=== PATIENT | male | born 1940 | race Caucasian/White ===

== ENCOUNTER 2018-01-22 10:58 | Day surgery (SDC) | payer MEDICARE, OTHER ==
[2018-01-22] VITALS (8 sets, daily range): BP systolic 120–141; BP diastolic 70–99; PULSE 44–101; TEMP 97.2
[~2018-01-22] VITALS: Ht 185.4 cm; Wt 83.6 kg
[2018-01-22] MEDS ORDERED: LIPITOR20 MG PO (11:20)
[2018-01-22] MEDS ORDERED: ZESTRIL 10MG10 MG PO (11:21)
[2018-01-22] MEDS ORDERED: 00186-0372-20 IH (11:21)
[2018-01-22] MEDS ORDERED: NORVASC 5MG5 MG/TAB PO (11:21)
[2018-01-22] MEDS ORDERED: FLONASE SENSIM9.9 ML NS (11:22)
[2018-01-22] MEDS ORDERED: CARDIZEM120 MG PO (11:23)
[2018-01-22] MEDS ORDERED: ELIQUIS 2.5 PO (11:23)
[2018-01-22] MEDS ORDERED: ASPIRIN 81M81 MG/TA2 PO (11:23)
[2018-01-22] MEDS ORDERED: GLUCOSAMINE 1000 PO (11:24)
[2018-01-22 11:40] LABS: HEMOGLOBIN 13.8 g/dl (13.5-18.0); MEAN CELL VOLUME 92 fl (80.0-100.0); MEAN CORPUSCULAR HEMOGLOBIN 30 pg (27.0-31.0); MEAN CORPUSCULAR HGB CONC 32 g/dl (33.0-37.0); MEAN PLATELET VOLUME 10.4 fl (7.4-10.4); PLATELET COUNT 158 K/mm3 (130-400); RED BLOOD COUNT 4.68 M/mm3 (4.20-5.60); REDCELL DISTRIBUTION WIDTH-CV 13.2 % (11.5-14.5)
[2018-01-22 11:44] LABS: INR 1.1 (0.8-3.0); PROTHROMBIN TIME 12.5 SECONDS (9.7-12.8)
[2018-01-22 11:56] LABS: CALCIUM 8.8 mg/dL (8.4-10.2); CREATININE, serum 1.03 mg/dL (0.66-1.25); POTASSIUM 4.3 mmol/L (3.4-5.0)
== END 2018-01-22 17:57 | disposition home or self-care (01) ==
LOC: COL.CAR 10:58
PROVIDERS: Internal Medicine Cardiovascular Disease
DX: I25.10 Atherosclerotic heart disease of native coronary artery without angina pectoris (principal); I10 Essential (primary) hypertension; E78.5 Hyperlipidemia, unspecified; J44.9 Chronic obstructive pulmonary disease, unspecified; H54.42A3 Blindness left eye category 3, normal vision right eye; I48.92 Unspecified atrial flutter; Z86.73 Personal history of transient ischemic attack (TIA), and cerebral infarction without residual deficits; Z79.82 Long term (current) use of aspirin; Z79.01 Long term (current) use of anticoagulants; Z87.891 Personal history of nicotine dependence
CPT/HCPCS: J1644; J2250; J3010; Q9967

== ENCOUNTER 2018-11-26 11:23 | Day surgery (SDC) | payer MEDICARE, OTHER ==
[~2018-11-26] VITALS: Ht 185.6 cm; Wt 86.0 kg
[~2018-11-26 11:23] MED LIST: 00186-0372-20 IH; ASPIRIN 81M81 MG/TA2 PO; CARDIZEM120 MG PO; ELIQUIS 2.5 PO; FLONASE SENSIM9.9 ML NS; GLUCOSAMINE 1000 PO; LIPITOR20 MG PO; NORVASC 5MG5 MG/TAB PO; ZESTRIL 10MG10 MG PO
[2018-11-26 12:09] LABS: INR 1.5 (0.8-3.0); PROTHROMBIN TIME 17.2 SECONDS (9.7-12.8)
[2018-11-26 12:10] VITALS: BP 137/93; PULSE 112; TEMP 97.7
[2018-11-26 12:29] LABS: POTASSIUM 4.5 mmol/L (3.4-5.0)
[2018-11-26] MEDS ORDERED: METOPROLOL TART75 MG PO (12:38)
[2018-11-26] MEDS ORDERED: PRINIVIL40 MG PO (12:39)
[2018-11-26] MEDS ORDERED: ELIQUIS 5MG PO (12:39)
[2018-11-26] MEDS ORDERED: ALDACTONE 25MG25 M1 PO (12:40)
[2018-11-26] MEDS ORDERED: LASIX 20MG TABL20 MG PO (12:40)
[2018-11-26] MEDS ORDERED: LIPITOR 40MG TA40 MG PO (12:41)
[2018-11-26 13:04] LABS: THYROID STIMULATING HORMONE 5.8 uIU/mL (0.465-4.680)
[2018-11-26] MEDS ORDERED: LOPRESSOR 550 MG/TAB PO (14:07)
[2018-11-26 14:30] VITALS: BP 99/63; PULSE 59; TEMP 97.5
--- NOTE | 2018-11-26 14:30 | NUR ---
ISA/CV complete, report received from Ravinder ALEJO from [employer]. Pt resting well in bed. Dr. Luis spoke with pt's family in waiting room.
[2018-11-26 14:45] VITALS: BP 90/62; PULSE 59
[2018-11-26 15:00] VITALS: BP 107/68; PULSE 57
[2018-11-26 15:15] VITALS: BP 109/75; PULSE 57
[2018-11-26 15:30] VITALS: BP 114/72; PULSE 58
--- NOTE | 2018-11-26 15:40 | NUR ---
Pt has ambulated, voided and hakan PO intake s n/v. PIV removed with catheter intact.
--- NOTE | 2018-11-26 16:00 | NUR ---
Pt discharged per w/c by nurse with .
== END 2018-11-26 16:11 | disposition home or self-care (01) ==
LOC: COL.CAR 11:23
PROVIDERS: Internal Medicine Cardiovascular Disease
DX: I48.0 Paroxysmal atrial fibrillation (principal); I48.91 Unspecified atrial fibrillation; I48.3 Typical atrial flutter; I25.10 Atherosclerotic heart disease of native coronary artery without angina pectoris; I11.0 Hypertensive heart disease with heart failure; I50.21 Acute systolic (congestive) heart failure; E78.5 Hyperlipidemia, unspecified; J44.9 Chronic obstructive pulmonary disease, unspecified; I34.0 Nonrheumatic mitral (valve) insufficiency; G47.33 Obstructive sleep apnea (adult) (pediatric); Z79.01 Long term (current) use of anticoagulants; Z79.82 Long term (current) use of aspirin; Z95.1 Presence of aortocoronary bypass graft; Z82.49 Family history of ischemic heart disease and other diseases of the circulatory system; Z87.891 Personal history of nicotine dependence
CPT/HCPCS: J2704; J7120